=== PATIENT | female | born 1940 | race Caucasian/White ===

== ENCOUNTER 2019-12-13 11:28 | Emergency (ER) | payer MEDICARE, MEDICAID ==
[2019-12-13] MEDS ORDERED: Triple Antibiotic Oint 1 GM Packet ONE (11:57)
== END 2019-12-13 12:00 | disposition home or self-care (01) ==
LOC: BURERS 11:28
DX: S90.851A Superficial foreign body, right foot, initial encounter (principal); E11.9 Type 2 diabetes mellitus without complications; E03.9 Hypothyroidism, unspecified; F41.9 Anxiety disorder, unspecified; E78.5 Hyperlipidemia, unspecified; Z79.899 Other long term (current) drug therapy; Z79.4 Long term (current) use of insulin; Z79.82 Long term (current) use of aspirin; W45.8XXA Other foreign body or object entering through skin, initial encounter
CPT/HCPCS: 28190

== ENCOUNTER 2020-06-07 08:57 | Emergency (ER) | payer MEDICARE, MEDICAID ==
[2020-06-07] MEDS ORDERED: Lidocaine 1% PF 5 ML VIAL ONE (09:09)
[2020-06-07] MEDS ORDERED: Adacel (T-DAP) 0.5 ML SYRINGE ONE (09:35)
[2020-06-07] MEDS ORDERED: Bacitracin 1 PK ONE (09:35)
[2020-06-07 09:50] LABS: #Basophils 0.1 thou/uL (0.0-0.2); #Eosinphils 0.2 thou/uL (0.0-0.7); #Lymphocytes 1.6 thou/uL (1.20-3.40); #Monocytes 0.4 thou/uL (0.11-0.59); %Basophils 0.8 % (0.0-1.0); %Lymphocytes 19.1 % (21.0-51.0); %Monocytes 5.1 % (0.0-10.0); Hemoglobin 14.1 g/dL (12.0-16.0); Mean Corpuscular HGB CONC 31.8 g/dL (32.0-36.0); Mean Corpuscular Hemoglobin 30.9 pg (27.0-31.0); Mean Corpuscular Volume 97.2 fL (78.0-98.0); Mean Platelet Volume 7.8 fL (7.4-10.4); Platelet Count 160 thou/uL (130-400); RBC Distribution Width 12.8 % (11.5-14.5); Red Blood Cell (RBC) Count 4.56 mill/uL (4.20-5.40); White Blood Cell (WBC) Count 8.2 thou/uL (4.8-10.8)
[2020-06-07 09:54] LABS: Bilirubin Negative (Negative); Blood, Urine Negative (Negative); Clarity Clear (Clear); Glucose, Urine (Dipstick) 500 mg/dL (Negative); Ketone, Urine 15 mg/dL (Negative); Leukocyte Trace (Negative); Nitrite Negative (Negative); Protein, Urine (Dipstick) Negative (Neg-Trace); Specific Gravity, Urine 1.015 (1.005-1.030); Urobilinogen 0.2 mg/dL (Less than 2)
[2020-06-07 10:02] LABS: ALT (SGPT) 38 U/L (8-55); AST (SGOT) 57 U/L (5-34); Albumin 4.7 g/dL (3.4-4.8); Alkaline Phosphatase 70 U/L (40-110); Anion Gap 19 mmol/L (10-20); BUN (Urea Nitrogen) 9 mg/dL (9.8-20.1); Bilirubin, Total 0.7 mg/dL (0.2-1.2); Calc. Creatinine Clearance 0 mL/min (70-130); Calcium 10.4 mg/dL (7.8-10.44); Carbon Dioxide 26 mmol/L (23-31); Chloride 101 mmol/L (98-107); Estimated GFR-MDRD 61; Globulin 3.8 g/dL (2.4-3.5); Potassium 3.3 mmol/L (3.5-5.1); Protein, Total 8.5 g/dL (6.0-8.3); Sodium 143 mmol/L (136-145)
[2020-06-07 10:08] LABS: Bacteria/HPF None Seen HPF (None Seen); RBC/HPF 0-3 HPF (0-3); Squamous Epithelial 0-3 HPF (0-3); WBC/HPF 0-3 HPF (0-3)
[2020-06-07 10:14] LABS: Glucose 320 mg/dL (83-110)
[2020-06-07] MEDS ORDERED: Sterile Water 10 ML ONE (10:20)
[2020-06-07] MEDS ORDERED: Insulin Regular 300 UNITS/3 ML VIAL ONE (10:20)
[2020-06-07] MEDS ORDERED: cefTRIAXone\\ROCEPHIN 1 GM VIAL ONE (10:20)
--- NOTE | 2020-06-07 18:07 | RAD ---
PORTABLE CHEST: 06/07/20 An AP portable film at 1027 is compared with a 11/07/15 study. The heart remains normal in size. The lungs are clear. No infiltrate, effusion, or congestion was see n. Faint calcification is seen in the aortic arch. IMPRESSION: No acute thoracic finding. POS: HOME
== END 2020-06-07 11:00 | disposition home or self-care (01) ==
LOC: BURERS 08:57
DX: L02.612 Cutaneous abscess of left foot (principal); E86.0 Dehydration; E11.65 Type 2 diabetes mellitus with hyperglycemia; E78.5 Hyperlipidemia, unspecified; E03.9 Hypothyroidism, unspecified; F41.9 Anxiety disorder, unspecified; Z79.899 Other long term (current) drug therapy; Z79.4 Long term (current) use of insulin; Z79.82 Long term (current) use of aspirin
CPT/HCPCS: 10060; 36416; 71045; 80053; 81003; 81015; 83605; 84443; 84484; 85025; 87040; 87070; 87205; 90471; 90715; 96361; 96374; 36415-59; J0696; J1815